=== PATIENT | female | born 1985 | race Caucasian/White ===

== ENCOUNTER → 2016-09-07 | Outpatient (CLI) | payer OTHER ==
[~2016-09-07] MED LIST: ACET50TA PO; DOCU10ELUD PO; IBUP100SUS PO; IBUP80TA PO; MOM30SS PO; PRENTAB74 PO; PRENTAB9 PO
[2016-09-07 11:17] LABS: ESTRADIOL 79.5 PG/ML
== END ==
LOC: M LAB 10:07
PROVIDERS: ATTEND Obstetrics & Gynecology Reproductive Endocrinology
DX: Z31.49 Encounter for other procreative investigation and testing (principal)

== ENCOUNTER → 2016-09-17 | Outpatient (CLI) | payer OTHER ==
[2016-09-17 09:48] LABS: ESTRADIOL 30.4 PG/ML; LUTEINIZING HORMONE 4.9 mIU/mL; PROGESTERONE 0.8 NG/ML
[2016-09-17 09:49] LABS: FOLLICLE STIMULATING HORMONE 6.5 mIU/mL
== END ==
LOC: M LAB 08:17
PROVIDERS: ATTEND Obstetrics & Gynecology Reproductive Endocrinology
DX: N97.9 Female infertility, unspecified (principal)

== ENCOUNTER → 2016-09-21 | Outpatient (CLI) | payer OTHER ==
--- NOTE | 2016-09-21 10:18 | REP ---
Transvaginal pelvic sonography: History: Infertility. Findings: Uterine dimensions are 7.1 x 2.8 x 4.4 cm. Endometrial stripe is 0.2 cm thick and centrally placed. No free fluid is seen. The overall dimensions of the right ovary today are 2.7 x 2.7 x 2.1 cm. There are three follicles over a centimeter in the right ovary measured as follows: 1.2 x 1.0, 1.2 x 1.2, and 1.1 x 0.7 cm. In addition, the right ovary contains 16 follicles ranging in size from 0.2 to 1.0 cm. The overall dimensions of the left ovary today are 2.9 x 2.0 x 1.8 cm. The left ovary contains a 1.4 x 0.6 and a 1.4 x 0.7 cm follicle. In addition, there are 14 follicles in the left ovary ranging in size from 0.2 to 0.8 cm.. Signed by Sean Wilkes MD 09/21/2016 10:20 A
[2016-09-21 10:25] LABS: ESTRADIOL 45.9 PG/ML; LUTEINIZING HORMONE 7.8 mIU/mL; PROGESTERONE 0.4 NG/ML
== END ==
LOC: M RAD 09:36
PROVIDERS: ATTEND Obstetrics & Gynecology Reproductive Endocrinology
DX: N97.8 Female infertility of other origin (principal)

== ENCOUNTER 2016-09-22 23:41 | Emergency (ER) | payer OTHER ==
[2016-09-23] MEDS ORDERED: ONDANSETRON 4MG/2ML VIAL (J2405) As Ordered ONE (00:35)
[2016-09-23] MEDS ORDERED: MORPHINE 2 MG/ML 1ML SYRINGE As Ordered ONE ×2 (00:35→02:08)
[2016-09-23 01:29] LABS: BASO % 0.1 % (0.0-1.0); EOS % 0.4 % (0.0-3.0); LARGE UNSTAINED CELL % 0.4 % (0.0-4.0); LYMPH # 0.3 K/mm3 (1.5-4.5); LYMPH % 2.8 % (24.0-44.0); MEAN CORPUSCULAR HEMOGLOBIN 30.6 pg (27.0-33.0); MEAN CORPUSCULAR HGB CONC 35.1 g/dl (32.0-36.5); MEAN CORPUSCULAR VOLUME 87.4 fl (80.0-96.0); MONO # 0.2 K/mm3 (0.0-0.8); MONO % 1.4 % (0.0-5.0); NEUTROPHILS # 10.8 K/mm3 (1.8-7.7); NEUTROPHILS % 94.9 % (36.0-66.0); PLATELET COUNT, AUTOMATED 170 k/mm3 (150-450); RED CELL DISTRIBUTION WIDTH 11.9 % (11.5-14.5); WHITE BLOOD COUNT 11.3 K/mm3 (4.0-10.0)
[2016-09-23 01:54] LABS: ALBUMIN/GLOBULIN RATIO 1.08 (1.00-1.93); ALKALINE PHOSPHATASE 77 U/L (45-117); ALT/SGPT 26 U/L (12-78); ANION GAP 12 MEQ/L (8-16); AST/SGOT 14 U/L (15-37); BILIRUBIN,DIRECT < 0.1 MG/DL (0.0-0.2); BILIRUBIN,TOTAL 0.5 MG/DL (0.2-1.0); BLOOD UREA NITROGEN 16 MG/DL (7-18); CALCIUM LEVEL 8.9 MG/DL (8.5-10.1); CARBON DIOXIDE LEVEL 24 MEQ/L (21-32); CHLORIDE LEVEL 103 MEQ/L (98-107); CREATININE FOR GFR 0.89 MG/DL (0.55-1.02); GLOMERULAR FILTRATION RATE > 60.0 (>60); GLUCOSE, FASTING 133 MG/DL (70-105); POTASSIUM SERUM 3.8 MEQ/L (3.5-5.1); SODIUM LEVEL 139 MEQ/L (136-145); TOTAL PROTEIN 7.7 GM/DL (6.4-8.2)
[2016-09-23 02:00] LABS: CONTROL LINE UCG INT CTR LINE PRESENT
--- NOTE | 2016-09-23 03:40 | REPUSA ---
CLINICAL HISTORY: Abdominal pain. TECHNIQUE: Multiple axial, sagittal and coronal CT images were obtained through the abdomen and pelvi s without administration of oral or IV contrast material. COMMENTS: The liver is of uniform attenuation without mass or defect. There is no intra or extrahepatic biliary ductal dilatation. The spleen is normal. The gallbladder is within normal limits. The pancreas is of normal contour and attenuation characteristics. There is no evidence of adrenal mass. The kidneys are normal in size, shape and configuration. No renal or ureteral calculi are identified. There is no hydroureter or hydronephrosis. Fluid-filled bowels. There is no evidence for appendicitis. There is no bowel wall thickening. No evidence for small or la rge bowel obstruction. There is no evidence of abdominal ascites or lymphadenopathy. There is no evidence of intrinsic or extrinsic bladder mass. There is no pelvic ascites or lymphadeno hank. Images of the lung bases show no evidence of pleural or parenchymal mass. There are no pleural effusi ons. Bilateral basilar atelectatic pulmonary changes. The bony structures are free of lytic or blastic lesions. IMPRESSION: Fluid-filled bowels. Ileus versus enteritis. Bilateral basilar atelectatic pulmonary changes. Mild diffuse thickening of the one of the bladder. Thank you for your kind referral of this patient.
[2016-09-23] MEDS ORDERED: ACETAMINOPH W/CODEINE #3 TAB UD As Ordered ONE (04:35)
--- NOTE | 2016-09-23 04:48 | EDDOCDS ---
Nurse's Notes [facility] Name: Lisset Soler Age: 30 yrs Sex: Female : 1985 Arrival Date: 09/22/2016 Time: 23:41 Bed 6 Private MD: Shine Ghosh Diagnosis: Vomiting;Diarrhea, unspecified Presentation: 09/22 23:58 Presenting complaint: Patient states: Vomiting, diarrhea with BL flank pain that began lf1 at 1800 tonight that has gotten worse and is currently 9/10. Pt denies pain with urination. Adult Sepsis Screening: The patient does not have new or worsening altered mentation. Patient's respiratory rate is less than 22. Systolic blood pressure is greater than 100. Patient has a qSOFA score of 0- Negative Sepsis Screen. Suicide/Homicide risk assessment- the patient denies having any suicidal and/or homicidal ideations and does not present with any other emotional, behavioral or mental health complaints. Status: The patient is a dependent. Transition of care: patient was not received from another setting of care. 23:58 Acuity: KAIT Level 3 lf1 23:58 Method Of Arrival: Walkin/Carried/Asstd lf1 Triage Assessment: 09/23 00:03 General: Appears uncomfortable, Behavior is cooperative. Pain: Location: BL flank Pain lf1 currently is 7 out of 10 on a pain scale. Quality of pain is described as aching, dull. HIV screening NA for this visit Offered previously. Neurological: Level of Consciousness is awake, alert, Oriented to person, place, time. Respiratory: Respiratory effort is even, unlabored. GI: Reports diarrhea, nausea, vomiting. : Denies burning with urination, urinary frequency. Derm: Skin is normal. Injury Description: No known injury. 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 Gonal-F 75 IU for Fertility daily 2. letrozole 2.5 mg oral tab 1 tab once daily 3. Vitamin Oral tab 1 tab once daily 4. Baby aspirin 81 mg - PMHx: Infertilty; PCOS; - PSHx: none; - Social history: Smoking status: Patient states was never smoker of tobacco. No barriers to communication noted, The patient speaks fluent Yoruba, Speaks appropriately for age, Preferred Language: Yoruba. - Family history: Not pertinent. - : The pt / caregiver states he / she is not on anticoagulants. Home medication list is obtained from the patient. - Exposure Risk Screening:: None identified. Screenin:57 Screening information is obtained from the patient. Fall risk: No risks identified. cf2 Assistance ADL's: requires no assistance with activities of daily living. Abuse/DV Screen: The patient / caregiver reports he/she is: not in a situation that causes fear, pain or injury. Nutritional screening: No deficits noted. Advance Directives: Further advance directive information is declined. home support is adequate. Assessment: :57 Adult Sepsis Screening: The patient does not have new or worsening altered mentation. cf2 Patient's respiratory rate is less than 22. Systolic blood pressure is greater than 100. Patient has a qSOFA score of 0- Negative Sepsis Screen. General: Appears ill, well groomed, Behavior is appropriate for age, cooperative, Denies fever, feeling ill, fatigue, chills. Pain: Location: back. Neurological: No deficits noted. EENT: No deficits noted. Cardiovascular: No deficits noted. Respiratory: No deficits noted. GI: Bowel sounds present X 4 quads. Abd is soft and non tender X 4 quads. Reports nausea, vomiting. : No deficits noted. Derm: No deficits noted. Musculoskeletal: No deficits noted. Injury Description: No known injury. 04:46 Reassessment: Patient states feeling better. cf2 Vital Signs: 09/22 23:43 BP 101 / 73; Pulse 99; Resp 18 S; Temp 99.0(O); Pulse Ox 98% on R/A; Weight 92.99 kg dd6 (R); Height 5 ft. 6 in. (167.64 cm) (R); 09/23 02:04 BP 116 / 72; cf2 04:46 BP 118 / 71; Pulse 82; Resp 16; Temp 98.0; Pulse Ox 99% on R/A; Pain 5/10; cf2 09/22 23:43 Body Mass Index 33.09 (92.99 kg, 167.64 cm) dd6 Vitals: 09/22 23:43 Log In Time: September 22, 2016 at 23:41. dd6 ED Course: 23:42 Patient visited by Jonel Saucedo PCA. dd6 23:42 Patient moved to Waiting dd6 23:43 Shine Ghosh is Private Physician. dd6 23:43 Patient moved to Pre RCE dd6 09/23 00:00 Triage Initiated lf1 00:04 Patient moved to I2 / M2 ajs 00:08 Patient moved to 6 ajs 00:11 Onelia Brush,ALEXANDRE is Primary Nurse. cf2 00:11 Patient visited by Onelia Brush RN. cf2 00:21 Patient visited by Onelia Brush RN. cf2 00:24 Xavier Manzanares MD is Attending Physician. br1 00:31 Patient visited by Onelia Brush RN. cf2 00:32 Patient visited by Xavier Manzanares MD. br1 01:00 Patient visited by Onelia Brush RN. cf2 01:31 Patient visited by Onelia Brush RN. cf2 01:33 Inserted saline lock: 20 gauge in left antecubital area and blood collected. The kas2 patient tolerated the procedure well. No procedures done that require assistance. 01:34 Patient visited by Janette Emanuel RN. kas2 01:54 Urine Test-In Lab Sent. jmv 01:54 Urine Culture Sent. jmv 01:54 Urinalysis Sent. jmv 01:55 Patient visited by Onelia Brush RN. cf2 01:56 Patient name changed from Lisset\\S\\\\S\\Lessner\\S\\ to Lisset\\S\\Savita\\S\\Lessner. EDMS 01:57 [facility] Payment Agreement was scanned into [employer] and attached to record. pm4 01:57 The patient / caregiver is instructed regarding the plan of care and ED course. Patient cf2 has correct armband on for positive identification. Placed in gown. Bed in low position. Call light in reach. Side rails up X 1. Side rails up X2. Door closed. Noise minimized. Visitors limited. Lights dimmed. Moved to private room. Verbal reassurance given. Warm blanket given. Pillow given. Head of bed elevated. Diet: Patient is NPO. 02:48 Patient visited by Onelia Brush RN. cf2 03:24 Patient visited by Onelia Brush RN. cf2 03:42 CT ABD & PELVIS: No Contrast Returned. EDMS 03:50 Patient visited by Xavier Manzanares MD. br1 03:53 AugieShine is Referral Physician. br1 Administered Medications: Discontinued: NS 0.9% 1000 ml IV at bolus once 01:00 Drug: NS 0.9% 1000 ml [sodium chloride 0.9 % intravenous solution] Route: IV; Rate: cf2 bolus; Site: left antecubital; 01:00 Drug: morphine 2 mg [morphine 4 mg/mL intravenous cartridge (0.5 mL)] Route: IVP; Site: cf2 left antecubital; 04:45 Follow up: Response: No significant change. cf2 01:00 Drug: Ondansetron 4 mg [ondansetron HCl 2 mg/mL intravenous solution (2 mL)] Route: cf2 IVP; Site: left antecubital; 04:45 Follow up: Response: No significant change. cf2 02:00 Drug: morphine 2 mg [morphine 2 mg/mL intravenous cartridge (1 mL)] Route: IVP; Site: cf2 left antecubital; 04:45 Follow up: Response: No significant change. cf2 04:44 Drug: Acetaminophen-Codeine 2 tabs [acetaminophen 300 mg-codeine 30 mg tablet (2 tabs)] cf2 Route: PO; 04:46 Follow up: Response: Pt left department before re-evaluation is appropriate cf2 Order Results: Lab Order: CBC with Diff; SPEC'M 09/23/16 01:19 Test: WHITE BLOOD COUNT; Value: 11.3; Range: 4.0-10.0; Abnormal: Above high normal; Units: K/mm3; Status: F Test: RED BLOOD COUNT; Value: 4.90; Range: 4.00-5.40; Units: M/mm3; Status: F Test: HEMOGLOBIN; Value: 15.0; Range: 12.0-16.0; Units: g/dl; Status: F Test: HEMATOCRIT; Value: 42.8; Range: 36.0-47.0; Units: %; Status: F Test: MEAN CORPUSCULAR VOLUME; Value: 87.4; Range: 80.0-96.0; Units: fl; Status: F Test: MEAN CORPUSCULAR HEMOGLOBIN; Value: 30.6; Range: 27.0-33.0; Units: pg; Status: F Test: MEAN CORPUSCULAR HGB CONC; Value: 35.1; Range: 32.0-36.5; Units: g/dl; Status: F Test: RED CELL DISTRIBUTION WIDTH; Value: 11.9; Range: 11.5-14.5; Units: %; Status: F Test: PLATELET COUNT, AUTOMATED; Value: 170; Range: 150-450; Units: k/mm3; Status: F Test: NEUTROPHILS %; Value: 94.9; Range: 36.0-66.0; Abnormal: Above high normal; Units: %; Status: F Test: LYMPH %; Value: 2.8; Range: 24.0-44.0; Abnormal: Below low normal; Units: %; Status: F Test: MONO %; Value: 1.4; Range: 0.0-5.0; Units: %; Status: F Test: EOS %; Value: 0.4; Range: 0.0-3.0; Units: %; Status: F Test: BASO %; Value: 0.1; Range: 0.0-1.0; Units: %; Status: F Test: LARGE UNSTAINED CELL %; Value: 0.4; Range: 0.0-4.0; Units: %; Status: F Test: NEUTROPHILS #; Value: 10.8; Range: 1.8-7.7; Abnormal: Above high normal; Units: K/mm3; Status: F Test: LYMPH #; Value: 0.3; Range: 1.5-4.5; Abnormal: Below low normal; Units: K/mm3; Status: F Test: MONO #; Value: 0.2; Range: 0.0-0.8; Units: K/mm3; Status: F Test: EOS #; Value: 0.0; Range: 0.0-0.50; Units: K/mm3; Status: F Test: BASO #; Value: 0.0; Range: 0.0-0.2; Units: K/mm3; Status: F Test: LARGE UNSTAINED CELL #; Value: 0.0; Range: 0.0-0.4; Units: K/mm3; Status: F Lab Order: BMP; SPEC'M 09/23/16 01:19 Test: GLUCOSE, FASTING; Value: 133; Range: 70-105; Abnormal: Above high normal; Units: MG/DL; Status: F Test: BLOOD UREA NITROGEN; Value: 16; Range: 7-18; Units: MG/DL; Status: F Test: CREATININE FOR GFR; Value: 0.89; Range: 0.55-1.02; Units: MG/DL; Status: F Test: GLOMERULAR FILTRATION RATE; Value: > 60.0; Range: >60; Status: F Test: SODIUM LEVEL; Value: 139; Range: 136-145; Units: MEQ/L; Status: F Test: POTASSIUM SERUM; Value: 3.8; Range: 3.5-5.1; Units: MEQ/L; Status: F Test: CHLORIDE LEVEL; Value: 103; Range: 98-107; Units: MEQ/L; Status: F Test: CARBON DIOXIDE LEVEL; Value: 24; Range: 21-32; Units: MEQ/L; Status: F Test: ANION GAP; Value: 12; Range: 8-16; Units: MEQ/L; Status: F Test: CALCIUM LEVEL; Value: 8.9; Range: 8.5-10.1; Units: MG/DL; Status: F Test Note: ; Units are mL/min/1.73 m2 Chronic Kidney Disease Staging per NKF: Stage I & II GFR >=60 Normal to Mildly Decreased Stage III GFR 30-59 Moderately Decreased Stage IV GFR 15-29 Severely Decreased Stage V GFR <15 Very Little GFR Left ESRD GFR <15 on BALANCE TRUER Lab Order: Urinalysis; SPEC'M 09/23/16 01:51 Test: APPEARANCE, URINE; Value: HAZY; Range: CLEAR; Status: F Test: COLOR, URINE; Value: YELLOW; Range: YELLOW; Status: F Test: PH,URINE; Value: 5.0; Range: 5.0-9.0; Units: UNITS; Status: F Test: SPECIFIC GRAVITY URINE AUTO; Value: 1.029; Range: 1.002-1.035; Status: F Test: PROTEIN, URINE AUTO; Value: NEGATIVE; Range: NEGATIVE; Units: mg/dL; Status: F Test: GLUCOSE, URINE (UA) AUTO; Value: NEGATIVE; Range: NEGATIVE; Units: mg/dL; Status: F Test: KETONE, URINE AUTO; Value: NEGATIVE; Range: NEGATIVE; Units: mg/dL; Status: F Test: UROBILINOGEN, URINE AUTO; Value: 0.2; Range: 0.0-2.0; Units: mg/dL; Status: F Test: BILIRUBIN, URINE AUTO; Value: NEGATIVE; Range: NEGATIVE; Status: F Test: NITRITE, URINE AUTO; Value: NEGATIVE; Range: NEGATIVE; Status: F Test: LEUKOCYTE ESTERASE, URINE AUTO; Value: NEGATIVE; Range: NEGATIVE; Status: F Test: BLOOD, URINE BLOOD; Value: NEGATIVE; Range: NEGATIVE; Status: F Test: SPERM, URINE AUTO; Range: NONE; Status: I Test: WBC, URINE AUTO; Value: 1; Range: 0-3; Units: /HPF; Status: F Test: RBC, URINE AUTO; Value: 2; Range: 0-3; Units: /HPF; Status: F Test: BACTERIA, URINE AUTO; Value: NEGATIVE; Range: NEGATIVE; Status: F Test: SQUAMOUS EPITHELIAL CELL UR AU; Value: 2; Range: 0-6; Units: /HPF; Status: F Test: MUCUS, URINE; Value: SMALL; Range: NEGATIVE; Status: F Test: HYALINE CAST, URINE AUTO; Value: 0; Range: 0-1; Units: /LPF; Status: F Lab Order: Urine Test-In Lab; SPEC'M 09/23/16 01:51 Test: URINE PREG TEST; Value: NEGATIVE; Range: NEGATIVE; Status: F Lab Order: Liver Profile; SPEC'M 09/23/16 01:19 Test: AST/SGOT; Value: 14; Range: 15-37; Abnormal: Below low normal; Units: U/L; Status: F Test: ALT/SGPT; Value: 26; Range: 12-78; Units: U/L; Status: F Test: ALKALINE PHOSPHATASE; Value: 77; Range: 45-117; Units: U/L; Status: F Test: BILIRUBIN,TOTAL; Value: 0.5; Range: 0.2-1.0; Units: MG/DL; Status: F Test: BILIRUBIN,DIRECT; Value: < 0.1; Range: 0.0-0.2; Units: MG/DL; Status: F Test: TOTAL PROTEIN; Value: 7.7; Range: 6.4-8.2; Units: GM/DL; Status: F Test: ALBUMIN; Value: 4.0; Range: 3.2-5.2; Units: GM/DL; Status: F Test: ALBUMIN/GLOBULIN RATIO; Value: 1.08; Range: 1.00-1.93; Status: F Lab Order: Lipase; SPEC'M 09/23/16 01:19 Test: LIPASE; Value: 127; Range: 73-393; Units: U/L; Status: F Radiology Order: CT ABD & PELVIS: No Contrast Test: CT ABD & PELVIS: No Contrast REASON FOR EXAMINATION: Renal colic; ; CLINICAL HISTORY: Abdominal pain.; TECHNIQUE: Multiple axial, sagittal and coronal CT images were obtained through the abdomen and pelvi; s without administration of oral or IV contrast material.; COMMENTS:; The liver is of uniform attenuation without mass or defect. There is no intra or extrahepatic biliary; ductal dilatation. The spleen is normal. The gallbladder is within normal limits. The pancreas is of; normal contour and attenuation characteristics. There is no evidence of adrenal mass.; The kidneys are normal in size, shape and configuration. No renal or ureteral calculi are identified.; There is no hydroureter or hydronephrosis. Fluid-filled bowels.; There is no evidence for appendicitis. There is no bowel wall thickening. No evidence for small or la; rge bowel obstruction. There is no evidence of abdominal ascites or lymphadenopathy.; There is no evidence of intrinsic or extrinsic bladder mass. There is no pelvic ascites or lymphadeno; hank.; Images of the lung bases show no evidence of pleural or parenchymal mass. There are no pleural effusi; ons. Bilateral basilar atelectatic pulmonary changes.; The bony structures are free of lytic or blastic lesions.; IMPRESSION:; Fluid-filled bowels. Ileus versus enteritis.; Bilateral basilar atelectatic pulmonary changes.; Mild diffuse thickening of the one of the bladder.; Thank you for your kind referral of this patient.; ; Outcome: 01:57 Property :Personal belongings accompany Pt. cf2 01:59 Discharge Assessment: patient administered narcotics - yes. cf2 03:53 Discharge ordered by Provider. br1 04:47 The following High Risk Discharge criteria are identified: None. Discharged to home. cf2 Condition: good Condition: stable Condition: improved. CT Study completed. 04:47 Patient left the ED. cf2 Signatures: Dispatcher [employer] EDMS Shila Cheney RN RN lf1 Xavier Manzanares MD MD br1 Jonel Saucedo, DRY MOLDER DRY MOLDER dd6 Lisset Mathew KimRN RN [facility] Onelia Brush RN RN cf2 Ruperto [place], DRY MOLDER DRY MOLDER josev Faustino Monique, Reg Reg pm4 MTDD
--- NOTE | 2016-09-23 04:48 | EDDOCDS ---
Physician Documentation [facility] Name: Lisset Soler Age: 30 yrs Sex: Female : 1985 Arrival Date: 09/22/2016 Time: 23:41 Bed 6 Private MD: Shine Ghosh Disposition: 09/23/16 03:53 Discharged to Home/Self Care. Impression: Vomiting, Diarrhea, unspecified. - Condition is Stable. - Discharge Instructions: Diarrhea, Nausea and Vomiting. - Prescriptions for ZOFRAN ODT 4 mg - dissolve 1 tablet by ORAL route 4 times per day As needed do not chew, do not swallow whole; 10 tablet. Tylenol- Codeine #3 300-30 mg Oral Tablet - take 2 tablet by ORAL route every 6 hours As needed MDD: 4 tabs; 6 tablet. - Medication Reconciliation, Local Pharmacy Hours form. - Follow up: Shine Ghosh; When: 2 - 3 days; Reason: Recheck today's complaints. - Problem is new. - Symptoms have improved. - Notes: You were seen in the ED for vomiting and diarhea. Bloodwork along with urine tests and CT scan of the abdomen showed no acute findings. It is possible you have a gastroenteritis. You may take Zofran as needed for nausea and encourage plenty of clear liquids for hydration. Advance your diet as tolerated, and call your primary doctor in the morning to arrange to be seen fora recheck. Return to the ED for any return of chest pain, trouble breathing, lightheadedness, loss of consciousness or any other concerns. Historical: - Allergies: PENICILLINS (Anaphylaxis); SULFA (SULFONAMIDES) (Anaphylaxis); Tamiflu"Made me worse"; - Home Meds: 1. Gonal-F 75 IU for Fertility daily 2. letrozole 2.5 mg oral tab 1 tab once daily 3. Vitamin Oral tab 1 tab once daily 4. Baby aspirin 81 mg - PMHx: Infertilty; PCOS; - PSHx: none; - Social history: Smoking status: Patient states was never smoker of tobacco. No barriers to communication noted, The patient speaks fluent Uzbek, Speaks appropriately for age, Preferred Language: Uzbek. - Family history: Not pertinent. - : The pt / caregiver states he / she is not on anticoagulants. Home medication list is obtained from the patient. - Exposure Risk Screening:: None identified. SURGICAL ASST: 09/23 00:03 1, Living 1, LMP 09/15/2016 lf1 Vital Signs: 09/22 23:43 BP 101 / 73; Pulse 99; Resp 18 S; Temp 99.0(O); Pulse Ox 98% on R/A; Weight 92.99 kg / dd6 205.01 lbs (R); Height 5 ft. 6 in. (167.64 cm) (R); 09/23 02:04 BP 116 / 72; cf2 04:46 BP 118 / 71; Pulse 82; Resp 16; Temp 98.0; Pulse Ox 99% on R/A; Pain 5/10; cf2 09/22 23:43 Body Mass Index 33.09 (92.99 kg, 167.64 cm) dd6 MDM: 00:30 IV Saline Lock ordered. br1 00:30 NS 0.9% 1000 ml IV at bolus once ordered. br1 00:31 morphine 2 mg IVP once ordered. br1 00:31 Ondansetron 4 mg IVP once ordered. br1 00:31 CBC with Diff Ordered. EDMS 00:31 BMP Ordered. EDMS 00:31 Urinalysis Ordered. EDMS 00:31 Urine Culture Ordered. EDMS 00:31 Urine Test-In Lab Ordered. EDMS 00:31 Liver Profile Ordered. EDMS 00:31 Lipase Ordered. EDMS 01:46 Financial registration complete. pm4 01:54 Recheck B/P ordered. br1 01:54 morphine 2 mg IVP once; hold for SBP < 100 mm Hg ordered. br1 01:55 CBC with Diff Reviewed. br1 01:55 BMP Reviewed. br1 01:55 Liver Profile Reviewed. br1 01:55 Lipase Reviewed. br1 01:57 [facility] [place] Agreement was scanned into [employer] and attached to record. pm4 02:21 Urinalysis Reviewed. br1 02:21 Urine Test-In Lab Reviewed. br1 02:22 CT ABD & PELVIS: No Contrast Ordered. EDMS 04:33 Acetaminophen-Codeine 300 mg-30 mg 2 tabs PO once ordered. br1 Administered Medications: Discontinued: NS 0.9% 1000 ml IV at bolus once 01:00 Drug: NS 0.9% 1000 ml [sodium chloride 0.9 % intravenous solution] Route: IV; Rate: cf2 bolus; Site: left antecubital; 01:00 Drug: morphine 2 mg [morphine 4 mg/mL intravenous cartridge (0.5 mL)] Route: IVP; Site: cf2 left antecubital; 04:45 Follow up: Response: No significant change. cf2 01:00 Drug: Ondansetron 4 mg [ondansetron HCl 2 mg/mL intravenous solution (2 mL)] Route: cf2 IVP; Site: left antecubital; 04:45 Follow up: Response: No significant change. cf2 02:00 Drug: morphine 2 mg [morphine 2 mg/mL intravenous cartridge (1 mL)] Route: IVP; Site: cf2 left antecubital; 04:45 Follow up: Response: No significant change. cf2 04:44 Drug: Acetaminophen-Codeine 2 tabs [acetaminophen 300 mg-codeine 30 mg tablet (2 tabs)] cf2 Route: PO; 04:46 Follow up: Response: Pt left department before re-evaluation is appropriate cf2 Signatures: Dispatcher [employer] Shila RiosRN RN lf1 Xavier Manzanares MD MD br1 Onelia Brush RN RN cf2 Faustino Monique, Reg Reg pm4 The chart was reviewed and I authenticate all verbal orders and agree with the evaluation and treatment provided.Attachments: 01:57 [facility] Payment Agreement pm4 MTDD
--- NOTE | 2016-09-25 05:49 | EDDOCDS ---
Physician Documentation [facility] Name: Lisset Soler Age: 30 yrs Sex: Female : 1985 Arrival Date: 09/22/2016 Time: 23:41 Bed 6 Private MD: Shine Ghosh Disposition: 09/23/16 03:53 Discharged to Home/Self Care. Impression: Vomiting, Diarrhea, unspecified. - Condition is Stable. - Discharge Instructions: Diarrhea, Nausea and Vomiting. - Prescriptions for ZOFRAN ODT 4 mg - dissolve 1 tablet by ORAL route 4 times per day As needed do not chew, do not swallow whole; 10 tablet. Tylenol- Codeine #3 300-30 mg Oral Tablet - take 2 tablet by ORAL route every 6 hours As needed MDD: 4 tabs; 6 tablet. - Medication Reconciliation, Local Pharmacy Hours form. - Follow up: Shine Ghosh; When: 2 - 3 days; Reason: Recheck today's complaints. - Problem is new. - Symptoms have improved. - Notes: You were seen in the ED for vomiting and diarhea. Bloodwork along with urine tests and CT scan of the abdomen showed no acute findings. It is possible you have a gastroenteritis. You may take Zofran as needed for nausea and encourage plenty of clear liquids for hydration. Advance your diet as tolerated, and call your primary doctor in the morning to arrange to be seen fora recheck. Return to the ED for any return of chest pain, trouble breathing, lightheadedness, loss of consciousness or any other concerns. Historical: - Allergies: PENICILLINS (Anaphylaxis); SULFA (SULFONAMIDES) (Anaphylaxis); Tamiflu"Made me worse"; - Home Meds: 1. Gonal-F 75 IU for Fertility daily 2. letrozole 2.5 mg oral tab 1 tab once daily 3. Vitamin Oral tab 1 tab once daily 4. Baby aspirin 81 mg - PMHx: Infertilty; PCOS; - PSHx: none; - Social history: Smoking status: Patient states was never smoker of tobacco. No barriers to communication noted, The patient speaks fluent Swedish, Speaks appropriately for age, Preferred Language: Swedish. - Family history: Not pertinent. - : The pt / caregiver states he / she is not on anticoagulants. Home medication list is obtained from the patient. - Exposure Risk Screening:: None identified. 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 6 in. (167.64 cm) (R); 09/23 02:04 BP 116 / 72; cf2 04:46 BP 118 / 71; Pulse 82; Resp 16; Temp 98.0; Pulse Ox 99% on R/A; Pain 5/10; cf2 09/22 23:43 Body Mass Index 33.09 (92.99 kg, 167.64 cm) dd6 MDM: 00:30 IV Saline Lock ordered. br1 00:30 NS 0.9% 1000 ml IV at bolus once ordered. br1 00:31 morphine 2 mg IVP once ordered. br1 00:31 Ondansetron 4 mg IVP once ordered. br1 00:31 CBC with Diff Ordered. EDMS 00:31 BMP Ordered. EDMS 00:31 Urinalysis Ordered. EDMS 00:31 Urine Culture Ordered. EDMS 00:31 Urine Test-In Lab Ordered. EDMS 00:31 Liver Profile Ordered. EDMS 00:31 Lipase Ordered. EDMS 01:46 Financial registration complete. pm4 01:54 Recheck B/P ordered. br1 01:54 morphine 2 mg IVP once; hold for SBP < 100 mm Hg ordered. br1 01:55 CBC with Diff Reviewed. br1 01:55 BMP Reviewed. br1 01:55 Liver Profile Reviewed. br1 01:55 Lipase Reviewed. br1 01:57 [place] [place] Agreement was scanned into [employer] and attached to record. pm4 02:21 Urinalysis Reviewed. br1 02:21 Urine Test-In Lab Reviewed. br1 02:22 CT ABD & PELVIS: No Contrast Ordered. EDMS 04:33 Acetaminophen-Codeine 300 mg-30 mg 2 tabs PO once ordered. br1 10:35 T-Sheet-- Draft Copy was scanned into [employer] and attached to record. gb 10:35 Radiology Report was scanned into [employer] and attached to record. gb Administered Medications: Discontinued: NS 0.9% 1000 ml IV at bolus once 01:00 Drug: NS 0.9% 1000 ml [sodium chloride 0.9 % intravenous solution] Route: IV; Rate: cf2 bolus; Site: left antecubital; 01:00 Drug: morphine 2 mg [morphine 4 mg/mL intravenous cartridge (0.5 mL)] Route: IVP; Site: cf2 left antecubital; 04:45 Follow up: Response: No significant change. cf2 01:00 Drug: Ondansetron 4 mg [ondansetron HCl 2 mg/mL intravenous solution (2 mL)] Route: cf2 IVP; Site: left antecubital; 04:45 Follow up: Response: No significant change. cf2 02:00 Drug: morphine 2 mg [morphine 2 mg/mL intravenous cartridge (1 mL)] Route: IVP; Site: cf2 left antecubital; 04:45 Follow up: Response: No significant change. cf2 04:44 Drug: Acetaminophen-Codeine 2 tabs [acetaminophen 300 mg-codeine 30 mg tablet (2 tabs)] cf2 Route: PO; 04:46 Follow up: Response: Pt left department before re-evaluation is appropriate cf2 Signatures: Dispatcher [employer] EDBertha Headley, Reg Reg gb Shila Cheney,RN RN lf1 Xavier Manzanares MD MD br1 Onelia Brush RN RN cf2 Faustino Moniuqe, Reg Reg pm4 The chart was reviewed and I authenticate all verbal orders and agree with the evaluation and treatment provided.Attachments: 01:57 [facility] [place] Agreement pm4 10:35 T-Sheet-- Draft Copy gb Chart Complete MTDD
--- NOTE | 2016-09-25 05:49 | EDDOCDS ---
Physician Documentation [facility] Name: Lisset Soler Age: 30 yrs Sex: Female : 1985 Arrival Date: 09/22/2016 Time: 23:41 Bed 6 Private MD: Shine Ghosh Disposition: 09/23/16 03:53 Discharged to Home/Self Care. Impression: Vomiting, Diarrhea, unspecified. - Condition is Stable. - Discharge Instructions: Diarrhea, Nausea and Vomiting. - Prescriptions for ZOFRAN ODT 4 mg - dissolve 1 tablet by ORAL route 4 times per day As needed do not chew, do not swallow whole; 10 tablet. Tylenol- Codeine #3 300-30 mg Oral Tablet - take 2 tablet by ORAL route every 6 hours As needed MDD: 4 tabs; 6 tablet. - Medication Reconciliation, Local Pharmacy Hours form. - Follow up: Shine Ghosh; When: 2 - 3 days; Reason: Recheck today's complaints. - Problem is new. - Symptoms have improved. - Notes: You were seen in the ED for vomiting and diarhea. Bloodwork along with urine tests and CT scan of the abdomen showed no acute findings. It is possible you have a gastroenteritis. You may take Zofran as needed for nausea and encourage plenty of clear liquids for hydration. Advance your diet as tolerated, and call your primary doctor in the morning to arrange to be seen fora recheck. Return to the ED for any return of chest pain, trouble breathing, lightheadedness, loss of consciousness or any other concerns. Historical: - Allergies: PENICILLINS (Anaphylaxis); SULFA (SULFONAMIDES) (Anaphylaxis); Tamiflu"Made me worse"; - Home Meds: 1. Gonal-F 75 IU for Fertility daily 2. letrozole 2.5 mg oral tab 1 tab once daily 3. Vitamin Oral tab 1 tab once daily 4. Baby aspirin 81 mg - PMHx: Infertilty; PCOS; - PSHx: none; - Social history: Smoking status: Patient states was never smoker of tobacco. No barriers to communication noted, The patient speaks fluent Italian, Speaks appropriately for age, Preferred Language: Italian. - Family history: Not pertinent. - : The pt / caregiver states he / she is not on anticoagulants. Home medication list is obtained from the patient. - Exposure Risk Screening:: None identified. 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 6 in. (167.64 cm) (R); 09/23 02:04 BP 116 / 72; cf2 04:46 BP 118 / 71; Pulse 82; Resp 16; Temp 98.0; Pulse Ox 99% on R/A; Pain 5/10; cf2 09/22 23:43 Body Mass Index 33.09 (92.99 kg, 167.64 cm) dd6 MDM: 00:30 IV Saline Lock ordered. br1 00:30 NS 0.9% 1000 ml IV at bolus once ordered. br1 00:31 morphine 2 mg IVP once ordered. br1 00:31 Ondansetron 4 mg IVP once ordered. br1 00:31 CBC with Diff Ordered. EDMS 00:31 BMP Ordered. EDMS 00:31 Urinalysis Ordered. EDMS 00:31 Urine Culture Ordered. EDMS 00:31 Urine Test-In Lab Ordered. EDMS 00:31 Liver Profile Ordered. EDMS 00:31 Lipase Ordered. EDMS 01:46 Financial registration complete. pm4 01:54 Recheck B/P ordered. br1 01:54 morphine 2 mg IVP once; hold for SBP < 100 mm Hg ordered. br1 01:55 CBC with Diff Reviewed. br1 01:55 BMP Reviewed. br1 01:55 Liver Profile Reviewed. br1 01:55 Lipase Reviewed. br1 01:57 [facility] [place] Payment Agreement was scanned into [employer] and attached to record. pm4 02:21 Urinalysis Reviewed. br1 02:21 Urine Test-In Lab Reviewed. br1 02:22 CT ABD & PELVIS: No Contrast Ordered. EDMS 04:33 Acetaminophen-Codeine 300 mg-30 mg 2 tabs PO once ordered. br1 10:35 T-Sheet-- Draft Copy was scanned into [employer] and attached to record. gb 10:35 Radiology Report was scanned into [employer] and attached to record. gb Administered Medications: Discontinued: NS 0.9% 1000 ml IV at bolus once 01:00 Drug: NS 0.9% 1000 ml [sodium chloride 0.9 % intravenous solution] Route: IV; Rate: cf2 bolus; Site: left antecubital; 01:00 Drug: morphine 2 mg [morphine 4 mg/mL intravenous cartridge (0.5 mL)] Route: IVP; Site: cf2 left antecubital; 04:45 Follow up: Response: No significant change. cf2 01:00 Drug: Ondansetron 4 mg [ondansetron HCl 2 mg/mL intravenous solution (2 mL)] Route: cf2 IVP; Site: left antecubital; 04:45 Follow up: Response: No significant change. cf2 02:00 Drug: morphine 2 mg [morphine 2 mg/mL intravenous cartridge (1 mL)] Route: IVP; Site: cf2 left antecubital; 04:45 Follow up: Response: No significant change. cf2 04:44 Drug: Acetaminophen-Codeine 2 tabs [acetaminophen 300 mg-codeine 30 mg tablet (2 tabs)] cf2 Route: PO; 04:46 Follow up: Response: Pt left department before re-evaluation is appropriate cf2 Signatures: Dispatcher [employer] EDBertha Headley, Reg Reg gb Shila Cheney,RN RN lf1 Xavier Manzanares MD MD br1 Onelia Brush RN RN cf2 Faustino Monique, Reg Reg pm4 The chart was reviewed and I authenticate all verbal orders and agree with the evaluation and treatment provided.Attachments: 01:57 [facility] [place] Payment Agreement pm4 10:35 T-Sheet-- Draft Copy gb Chart Complete MTDD
--- NOTE | 2016-09-25 05:49 | EDDOCDS ---
Nurse's Notes [facility] Name: Lisset Soler Age: 30 yrs Sex: Female : 1985 Arrival Date: 09/22/2016 Time: 23:41 Bed 6 Private MD: Shine Ghosh Diagnosis: Vomiting;Diarrhea, unspecified Presentation: 09/22 23:58 Presenting complaint: Patient states: Vomiting, diarrhea with BL flank pain that began lf1 at 1800 tonight that has gotten worse and is currently 9/10. Pt denies pain with urination. Adult Sepsis Screening: The patient does not have new or worsening altered mentation. Patient's respiratory rate is less than 22. Systolic blood pressure is greater than 100. Patient has a qSOFA score of 0- Negative Sepsis Screen. Suicide/Homicide risk assessment- the patient denies having any suicidal and/or homicidal ideations and does not present with any other emotional, behavioral or mental health complaints. Status: The patient is a dependent. Transition of care: patient was not received from another setting of care. 23:58 Acuity: KAIT Level 3 lf1 23:58 Method Of Arrival: Walkin/Carried/Asstd lf1 Triage Assessment: 09/23 00:03 General: Appears uncomfortable, Behavior is cooperative. Pain: Location: BL flank Pain lf1 currently is 7 out of 10 on a pain scale. Quality of pain is described as aching, dull. HIV screening NA for this visit Offered previously. Neurological: Level of Consciousness is awake, alert, Oriented to person, place, time. Respiratory: Respiratory effort is even, unlabored. GI: Reports diarrhea, nausea, vomiting. : Denies burning with urination, urinary frequency. Derm: Skin is normal. Injury Description: No known injury. 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 Gonal-F 75 IU for Fertility daily 2. letrozole 2.5 mg oral tab 1 tab once daily 3. Vitamin Oral tab 1 tab once daily 4. Baby aspirin 81 mg - PMHx: Infertilty; PCOS; - PSHx: none; - Social history: Smoking status: Patient states was never smoker of tobacco. No barriers to communication noted, The patient speaks fluent Chinese, Speaks appropriately for age, Preferred Language: Chinese. - Family history: Not pertinent. - : The pt / caregiver states he / she is not on anticoagulants. Home medication list is obtained from the patient. - Exposure Risk Screening:: None identified. Screenin:57 Screening information is obtained from the patient. Fall risk: No risks identified. cf2 Assistance ADL's: requires no assistance with activities of daily living. Abuse/DV Screen: The patient / caregiver reports he/she is: not in a situation that causes fear, pain or injury. Nutritional screening: No deficits noted. Advance Directives: Further advance directive information is declined. home support is adequate. Assessment: :57 Adult Sepsis Screening: The patient does not have new or worsening altered mentation. cf2 Patient's respiratory rate is less than 22. Systolic blood pressure is greater than 100. Patient has a qSOFA score of 0- Negative Sepsis Screen. General: Appears ill, well groomed, Behavior is appropriate for age, cooperative, Denies fever, feeling ill, fatigue, chills. Pain: Location: back. Neurological: No deficits noted. EENT: No deficits noted. Cardiovascular: No deficits noted. Respiratory: No deficits noted. GI: Bowel sounds present X 4 quads. Abd is soft and non tender X 4 quads. Reports nausea, vomiting. : No deficits noted. Derm: No deficits noted. Musculoskeletal: No deficits noted. Injury Description: No known injury. 04:46 Reassessment: Patient states feeling better. cf2 Vital Signs: 09/22 23:43 BP 101 / 73; Pulse 99; Resp 18 S; Temp 99.0(O); Pulse Ox 98% on R/A; Weight 92.99 kg dd6 (R); Height 5 ft. 6 in. (167.64 cm) (R); 09/23 02:04 BP 116 / 72; cf2 04:46 BP 118 / 71; Pulse 82; Resp 16; Temp 98.0; Pulse Ox 99% on R/A; Pain 5/10; cf2 09/22 23:43 Body Mass Index 33.09 (92.99 kg, 167.64 cm) dd6 Vitals: 09/22 23:43 Log In Time: September 22, 2016 at 23:41. dd6 ED Course: 23:42 Patient visited by Jonel Saucedo PCA. dd6 23:42 Patient moved to Waiting dd6 23:43 Shine Ghosh is Private Physician. dd6 23:43 Patient moved to Pre RCE dd6 09/23 00:00 Triage Initiated lf1 00:04 Patient moved to I2 / M2 ajs 00:08 Patient moved to 6 ajs 00:11 Onelia Brush,ALEXANDRE is Primary Nurse. cf2 00:11 Patient visited by Onelia Brush RN. cf2 00:21 Patient visited by Onelia Brush RN. cf2 00:24 Xavier Manzanares MD is Attending Physician. br1 00:31 Patient visited by Onelia Brush RN. cf2 00:32 Patient visited by Xavier Manzanares MD. br1 01:00 Patient visited by Onelia Brush RN. cf2 01:31 Patient visited by Onelia Brush RN. cf2 01:33 Inserted saline lock: 20 gauge in left antecubital area and blood collected. The kas2 patient tolerated the procedure well. No procedures done that require assistance. 01:34 Patient visited by Janette Emanuel RN. kas2 01:54 Urine Test-In Lab Sent. jmv 01:54 Urine Culture Sent. jmv 01:54 Urinalysis Sent. jmv 01:55 Patient visited by Onelia Brush RN. cf2 01:56 Patient name changed from Lisset\\S\\\\S\\Lessner\\S\\ to Lisset\\S\\Savita\\S\\Lessner. EDMS 01:57 [facility] Payment Agreement was scanned into [employer] and attached to record. pm4 01:57 The patient / caregiver is instructed regarding the plan of care and ED course. Patient cf2 has correct armband on for positive identification. Placed in gown. Bed in low position. Call light in reach. Side rails up X 1. Side rails up X2. Door closed. Noise minimized. Visitors limited. Lights dimmed. Moved to private room. Verbal reassurance given. Warm blanket given. Pillow given. Head of bed elevated. Diet: Patient is NPO. 02:48 Patient visited by Onelia Brush,ALEXANDRE. cf2 03:24 Patient visited by Onelia Brush,ALEXANDRE. cf2 03:42 CT ABD & PELVIS: No Contrast Returned. EDMS 03:50 Patient visited by Xavier Manzanares MD. br1 03:53 AugieShine is Referral Physician. br1 10:35 T-Sheet-- Draft Copy was scanned into [employer] and attached to record. gb 10:35 Radiology Report was scanned into [employer] and attached to record. gb Administered Medications: Discontinued: NS 0.9% 1000 ml IV at bolus once 01:00 Drug: NS 0.9% 1000 ml [sodium chloride 0.9 % intravenous solution] Route: IV; Rate: cf2 bolus; Site: left antecubital; 01:00 Drug: morphine 2 mg [morphine 4 mg/mL intravenous cartridge (0.5 mL)] Route: IVP; Site: cf2 left antecubital; 04:45 Follow up: Response: No significant change. cf2 01:00 Drug: Ondansetron 4 mg [ondansetron HCl 2 mg/mL intravenous solution (2 mL)] Route: cf2 IVP; Site: left antecubital; 04:45 Follow up: Response: No significant change. cf2 02:00 Drug: morphine 2 mg [morphine 2 mg/mL intravenous cartridge (1 mL)] Route: IVP; Site: cf2 left antecubital; 04:45 Follow up: Response: No significant change. cf2 04:44 Drug: Acetaminophen-Codeine 2 tabs [acetaminophen 300 mg-codeine 30 mg tablet (2 tabs)] cf2 Route: PO; 04:46 Follow up: Response: Pt left department before re-evaluation is appropriate cf2 Order Results: Lab Order: CBC with Diff; SPEC'M 09/23/16 01:19 Test: WHITE BLOOD COUNT; Value: 11.3; Range: 4.0-10.0; Abnormal: Above high normal; Units: K/mm3; Status: F Test: RED BLOOD COUNT; Value: 4.90; Range: 4.00-5.40; Units: M/mm3; Status: F Test: HEMOGLOBIN; Value: 15.0; Range: 12.0-16.0; Units: g/dl; Status: F Test: HEMATOCRIT; Value: 42.8; Range: 36.0-47.0; Units: %; Status: F Test: MEAN CORPUSCULAR VOLUME; Value: 87.4; Range: 80.0-96.0; Units: fl; Status: F Test: MEAN CORPUSCULAR HEMOGLOBIN; Value: 30.6; Range: 27.0-33.0; Units: pg; Status: F Test: MEAN CORPUSCULAR HGB CONC; Value: 35.1; Range: 32.0-36.5; Units: g/dl; Status: F Test: RED CELL DISTRIBUTION WIDTH; Value: 11.9; Range: 11.5-14.5; Units: %; Status: F Test: PLATELET COUNT, AUTOMATED; Value: 170; Range: 150-450; Units: k/mm3; Status: F Test: NEUTROPHILS %; Value: 94.9; Range: 36.0-66.0; Abnormal: Above high normal; Units: %; Status: F Test: LYMPH %; Value: 2.8; Range: 24.0-44.0; Abnormal: Below low normal; Units: %; Status: F Test: MONO %; Value: 1.4; Range: 0.0-5.0; Units: %; Status: F Test: EOS %; Value: 0.4; Range: 0.0-3.0; Units: %; Status: F Test: BASO %; Value: 0.1; Range: 0.0-1.0; Units: %; Status: F Test: LARGE UNSTAINED CELL %; Value: 0.4; Range: 0.0-4.0; Units: %; Status: F Test: NEUTROPHILS #; Value: 10.8; Range: 1.8-7.7; Abnormal: Above high normal; Units: K/mm3; Status: F Test: LYMPH #; Value: 0.3; Range: 1.5-4.5; Abnormal: Below low normal; Units: K/mm3; Status: F Test: MONO #; Value: 0.2; Range: 0.0-0.8; Units: K/mm3; Status: F Test: EOS #; Value: 0.0; Range: 0.0-0.50; Units: K/mm3; Status: F Test: BASO #; Value: 0.0; Range: 0.0-0.2; Units: K/mm3; Status: F Test: LARGE UNSTAINED CELL #; Value: 0.0; Range: 0.0-0.4; Units: K/mm3; Status: F Lab Order: BMP; SPEC'M 09/23/16 01:19 Test: GLUCOSE, FASTING; Value: 133; Range: 70-105; Abnormal: Above high normal; Units: MG/DL; Status: F Test: BLOOD UREA NITROGEN; Value: 16; Range: 7-18; Units: MG/DL; Status: F Test: CREATININE FOR GFR; Value: 0.89; Range: 0.55-1.02; Units: MG/DL; Status: F Test: GLOMERULAR FILTRATION RATE; Value: > 60.0; Range: >60; Status: F Test: SODIUM LEVEL; Value: 139; Range: 136-145; Units: MEQ/L; Status: F Test: POTASSIUM SERUM; Value: 3.8; Range: 3.5-5.1; Units: MEQ/L; Status: F Test: CHLORIDE LEVEL; Value: 103; Range: 98-107; Units: MEQ/L; Status: F Test: CARBON DIOXIDE LEVEL; Value: 24; Range: 21-32; Units: MEQ/L; Status: F Test: ANION GAP; Value: 12; Range: 8-16; Units: MEQ/L; Status: F Test: CALCIUM LEVEL; Value: 8.9; Range: 8.5-10.1; Units: MG/DL; Status: F Test Note: ; Units are mL/min/1.73 m2 Chronic Kidney Disease Staging per NKF: Stage I & II GFR >=60 Normal to Mildly Decreased Stage III GFR 30-59 Moderately Decreased Stage IV GFR 15-29 Severely Decreased Stage V GFR <15 Very Little GFR Left ESRD GFR <15 on FACILITIES ADMINISTRATOR Lab Order: Urinalysis; SPEC'M 09/23/16 01:51 Test: APPEARANCE, URINE; Value: HAZY; Range: CLEAR; Status: F Test: COLOR, URINE; Value: YELLOW; Range: YELLOW; Status: F Test: PH,URINE; Value: 5.0; Range: 5.0-9.0; Units: UNITS; Status: F Test: SPECIFIC GRAVITY URINE AUTO; Value: 1.029; Range: 1.002-1.035; Status: F Test: PROTEIN, URINE AUTO; Value: NEGATIVE; Range: NEGATIVE; Units: mg/dL; Status: F Test: GLUCOSE, URINE (UA) AUTO; Value: NEGATIVE; Range: NEGATIVE; Units: mg/dL; Status: F Test: KETONE, URINE AUTO; Value: NEGATIVE; Range: NEGATIVE; Units: mg/dL; Status: F Test: UROBILINOGEN, URINE AUTO; Value: 0.2; Range: 0.0-2.0; Units: mg/dL; Status: F Test: BILIRUBIN, URINE AUTO; Value: NEGATIVE; Range: NEGATIVE; Status: F Test: NITRITE, URINE AUTO; Value: NEGATIVE; Range: NEGATIVE; Status: F Test: LEUKOCYTE ESTERASE, URINE AUTO; Value: NEGATIVE; Range: NEGATIVE; Status: F Test: BLOOD, URINE BLOOD; Value: NEGATIVE; Range: NEGATIVE; Status: F Test: SPERM, URINE AUTO; Range: NONE; Status: I Test: WBC, URINE AUTO; Value: 1; Range: 0-3; Units: /HPF; Status: F Test: RBC, URINE AUTO; Value: 2; Range: 0-3; Units: /HPF; Status: F Test: BACTERIA, URINE AUTO; Value: NEGATIVE; Range: NEGATIVE; Status: F Test: SQUAMOUS EPITHELIAL CELL UR AU; Value: 2; Range: 0-6; Units: /HPF; Status: F Test: MUCUS, URINE; Value: SMALL; Range: NEGATIVE; Status: F Test: HYALINE CAST, URINE AUTO; Value: 0; Range: 0-1; Units: /LPF; Status: F Lab Order: Urine Culture; SPEC'M 09/23/16 01:51 Test: URINE CULTURE; Value: <EXTERNAL COMMENT eCWMed> FULL REPORT IN LAB NOTES (eCW and Medent).; Status: F Test: URINE CULTURE; Value: URINE CULTURE RESULT SPECIMEN APPEARS CONTAMINATED; Status: F Lab Order: Urine Test-In Lab; SPEC'M 09/23/16 01:51 Test: URINE PREG TEST; Value: NEGATIVE; Range: NEGATIVE; Status: F Lab Order: Liver Profile; SPEC'M 09/23/16 01:19 Test: AST/SGOT; Value: 14; Range: 15-37; Abnormal: Below low normal; Units: U/L; Status: F Test: ALT/SGPT; Value: 26; Range: 12-78; Units: U/L; Status: F Test: ALKALINE PHOSPHATASE; Value: 77; Range: 45-117; Units: U/L; Status: F Test: BILIRUBIN,TOTAL; Value: 0.5; Range: 0.2-1.0; Units: MG/DL; Status: F Test: BILIRUBIN,DIRECT; Value: < 0.1; Range: 0.0-0.2; Units: MG/DL; Status: F Test: TOTAL PROTEIN; Value: 7.7; Range: 6.4-8.2; Units: GM/DL; Status: F Test: ALBUMIN; Value: 4.0; Range: 3.2-5.2; Units: GM/DL; Status: F Test: ALBUMIN/GLOBULIN RATIO; Value: 1.08; Range: 1.00-1.93; Status: F Lab Order: Lipase; SPEC'M 09/23/16 01:19 Test: LIPASE; Value: 127; Range: 73-393; Units: U/L; Status: F Radiology Order: CT ABD & PELVIS: No Contrast Test: CT ABD & PELVIS: No Contrast REASON FOR EXAMINATION: Renal colic; ; CLINICAL HISTORY: Abdominal pain.; TECHNIQUE: Multiple axial, sagittal and coronal CT images were obtained through the abdomen and pelvi; s without administration of oral or IV contrast material.; COMMENTS:; The liver is of uniform attenuation without mass or defect. There is no intra or extrahepatic biliary; ductal dilatation. The spleen is normal. The gallbladder is within normal limits. The pancreas is of; normal contour and attenuation characteristics. There is no evidence of adrenal mass.; The kidneys are normal in size, shape and configuration. No renal or ureteral calculi are identified.; There is no hydroureter or hydronephrosis. Fluid-filled bowels.; There is no evidence for appendicitis. There is no bowel wall thickening. No evidence for small or la; rge bowel obstruction. There is no evidence of abdominal ascites or lymphadenopathy.; There is no evidence of intrinsic or extrinsic bladder mass. There is no pelvic ascites or lymphadeno; hank.; Images of the lung bases show no evidence of pleural or parenchymal mass. There are no pleural effusi; ons. Bilateral basilar atelectatic pulmonary changes.; The bony structures are free of lytic or blastic lesions.; IMPRESSION:; Fluid-filled bowels. Ileus versus enteritis.; Bilateral basilar atelectatic pulmonary changes.; Mild diffuse thickening of the one of the bladder.; Thank you for your kind referral of this patient.; ; Outcome: 01:57 Property :Personal belongings accompany Pt. cf2 01:59 Discharge Assessment: patient administered narcotics - yes. cf2 03:53 Discharge ordered by Provider. br1 04:47 The following High Risk Discharge criteria are identified: None. Discharged to home. cf2 Condition: good Condition: stable Condition: improved. CT Study completed. 04:47 Patient left the ED. cf2 Signatures: Dispatcher [employer] EDMS Bertha Martínez, Reg Reg gb Shila Cheney,RN RN lf1 Xavier Manzanares MD MD br1 Jonel Saucedo, OPERATING ROOM ORDERLY OPERATING ROOM ORDERLY dd6 Lisset Mathew Kim,RN RN [facility] Onelia Brush,RN RN cf2 Ruperto Richmond, OPERATING ROOM ORDERLY OPERATING ROOM ORDERLY jmv Faustino Monique, Reg Reg pm4 Chart Complete MTDD
== END 2016-09-23 04:47 | disposition home or self-care (01) ==
LOC: M ED 23:41
DX: R11.10 Vomiting, unspecified (principal); R19.7 Diarrhea, unspecified; E28.2 Polycystic ovarian syndrome; N97.9 Female infertility, unspecified; Z79.82 Long term (current) use of aspirin; Z79.899 Other long term (current) drug therapy; Z88.8 Allergy status to other drugs, medicaments and biological substances; Z88.0 Allergy status to penicillin; Z88.2 Allergy status to sulfonamides
CPT/HCPCS: 36415; 74176; 80048; 80076; 81001; 83690; 84703; 85025; 87086; 96374; 96375; 96376; 99284; J2405

== ENCOUNTER → 2016-09-25 | Outpatient (CLI) | payer OTHER ==
[2016-09-25 10:53] LABS: PROGESTERONE 0.3 NG/ML
[2016-09-25 10:54] LABS: ESTRADIOL 181.5 PG/ML; LUTEINIZING HORMONE 1.5 mIU/mL
--- NOTE | 2016-09-25 10:56 | REP ---
TRANSVAGINAL PELVIC SONOGRAPHY: HISTORY: Infertility. Follicle study. FINDINGS: Uterine dimensions are 8.1 x 3.2 x 4.7 cm. Endometrial stripe 0.6 cm thick and centrally placed. No focal uterine mass is seen. No free fluid is noted. The right ovary is measured at 3.6 x 3.0 x 2.8 cm. There are three follicles greater than a centimeter in diameter measured as follows: 1.8 x 1.8, 1.7 x 1.2, and 1.2 x 1.0 cm. In addition, the right ovary contains nine follicles ranging in size of 0.9 to 1.0 cm. The overall dimensions of the left ovary today are 4.7 x 3.7 x 3.3 cm. There are three follicles over a centimeter in size in the left ovary measured as follows: 1.9 x 1.7, 1.2 x 0.7, and 2.2 x 1.7 cm. In addition, the left ovary contains 16 follicles identified ranging in size from 0.4 to 0.8 cm. IMPRESSION: Ovarian follicle study. Signed by Sean Wilkes MD 09/25/2016 01:51 P
== END ==
LOC: M RAD 09:39 → M LAB 09:39
PROVIDERS: ATTEND Obstetrics & Gynecology Reproductive Endocrinology
DX: N97.8 Female infertility of other origin (principal)

== ENCOUNTER → 2016-10-05 | Outpatient (CLI) | payer OTHER ==
[2016-10-05 10:46] LABS: PROGESTERONE 13.6 NG/ML
[2016-10-05 10:47] LABS: ESTRADIOL 90.5 PG/ML
== END ==
LOC: M LAB 09:34
PROVIDERS: ATTEND Obstetrics & Gynecology Reproductive Endocrinology
DX: N97.9 Female infertility, unspecified (principal)

== ENCOUNTER → 2016-10-12 | Outpatient (CLI) | payer OTHER ==
[2016-10-12 09:32] LABS: HCG, SERUM QUANTITATIVE < 1.0 MIU/ML
[2016-10-12 10:09] LABS: PROGESTERONE 7.5 NG/ML
== END ==
LOC: M LAB 08:35
PROVIDERS: ATTEND Obstetrics & Gynecology Reproductive Endocrinology
DX: N97.9 Female infertility, unspecified (principal)

== ENCOUNTER → 2016-10-16 | Outpatient (CLI) | payer OTHER ==
[2016-10-16 08:40] LABS: HCG, SERUM QUANTITATIVE < 1.0 MIU/ML
--- NOTE | 2016-10-16 08:53 | REP ---
TRANSVAGINAL PELVIC ULTRASOUND FOLLICLE STUDY: Real-time sonographic evaluation of the pelvis performed utilizing transvaginal technique. The uterus measures 8.2 x 3.2 x 5.1 cm. Endometrial stripe measures 4 mm. Right ovary measures 2.4 x 1.3 x 2.1 cm. Eleven subcentimeter follicles are seen in the right ovary. Left ovary measures 3.0 x 1.5 x 1.8 cm. About six subcentimeter follicles are seen. There are no follicles in either ovary greater than 1 cm in diameter. Signed by Burke Ortega MD 10/16/2016 06:29 P
[2016-10-16 10:15] LABS: ESTRADIOL < 19.0 PG/ML; FOLLICLE STIMULATING HORMONE 3.4 mIU/mL; LUTEINIZING HORMONE 2.4 mIU/mL; PROGESTERONE 0.4 NG/ML
== END ==
LOC: M LAB 07:31 → M RAD 07:31
PROVIDERS: ATTEND Obstetrics & Gynecology Reproductive Endocrinology
DX: N97.9 Female infertility, unspecified (principal)

== ENCOUNTER → 2016-10-23 | Outpatient (CLI) | payer OTHER ==
--- NOTE | 2016-10-23 08:15 | REP ---
Clinical: Infertility. Technique: Transvaginal ultrasound examination. Findings: Anteverted uterus measures 7.6 x 2.6 x 4.1 cm. Endometrial complex measures 3 mm thickness. No discrete uterine or endometrial abnormalities are appreciated. No pelvic fluid or adnexal mass lesions identified. Right ovary measures 4.0 x 2.5 x 2.7 cm and includes three follicles between 10 and 13 mm diameter along with approximately 15 sub centimeter follicles. Left ovary measures 3.6 x 3.0 x 2.8 cm and includes five follicles between 10 and 14 mm diameter along with approximately five sub centimeter follicles. Impression: Bilateral follicles as noted above. Signed by Armando Smith MD 10/23/2016 08:06 A
[2016-10-23 10:38] LABS: ESTRADIOL 45.8 PG/ML; LUTEINIZING HORMONE 3.5 mIU/mL; PROGESTERONE 0.3 NG/ML
== END ==
LOC: M RAD 07:21
PROVIDERS: ATTEND Obstetrics & Gynecology Reproductive Endocrinology
DX: E28.2 Polycystic ovarian syndrome (principal)

== ENCOUNTER → 2016-10-26 | Outpatient (CLI) | payer OTHER ==
--- NOTE | 2016-10-26 08:25 | REP ---
Transvaginal pelvic sonography: History: E 28.2. Polycystic ovary. Infertility. Findings: Dimensions of the uterus are normal at 7.0 x 3.0 x 3.7 cm. Endometrial stripe 0.2 cm thick. No focal uterine mass is seen. No free fluid is noted. The overall dimensions of the right ovary are 2.7 x 2.2 x 2.7 cm. There are four follicles in the right ovary over a centimeter measured as follows: 1.0 x 0.9, 1.3 x 0.6, 1.1 x 0.9, and 1.0 x 0.9 cm. There are 13 follicles in the right ovary ranging in size from 0.3-0.9 cm in greatest diameter. The left ovary measures 3.7 x 2.1 x 2.0 cm. It contains five follicles over a centimeter, measured as follows: 1.2 x 1.0, 1.6 x 1.4, 1.0 x 0.8, 1.3 x 1.0, and 1.1 x 0.7 cm. There are five follicles in the left ovary ranging in size from 0.4-0.9 cm in greatest diameter. Impression: Follicle study pelvic sonography. Signed by Sean Wilkes MD 10/26/2016 03:19 P
[2016-10-26 10:51] LABS: PROGESTERONE 0.2 NG/ML
[2016-10-26 10:53] LABS: ESTRADIOL < 19.0 PG/ML
== END ==
LOC: M RAD 06:54 → M LAB 06:54
PROVIDERS: ATTEND Obstetrics & Gynecology Reproductive Endocrinology
DX: E28.2 Polycystic ovarian syndrome (principal)

== ENCOUNTER → 2016-10-28 | Outpatient (CLI) | payer OTHER ==
--- NOTE | 2016-10-28 08:49 | REP ---
TRANSVAGINAL PELVIC ULTRASOUND, FOLLICLE STUDY: Real-time sonographic evaluation of the pelvis performed utilizing transvaginal technique. The uterus measures 7.0 x 2.8 x 4.7 cm. Endometrial stripe measures 3 mm. There is no endometrial fluid collection. Right ovary measures 3.1 x 2.4 x 3.3 cm. Two dominant follicles are seen measuring 12 x 10 and 10 x 8 mm. Multiple other subcentimeter follicle are seen. Left ovary measures 3.8 x 3.0 x 2.3 cm. Five dominant follicle are seen which are greater than 1 cm in diameter. The largest measures 14 x 13 mm. Multiple other subcentimeter follicles are seen in the left ovary. Signed by Burke Ortega MD 10/28/2016 05:15 P
[2016-10-28 09:00] LABS: PROGESTERONE 0.3 NG/ML
[2016-10-28 09:01] LABS: ESTRADIOL 29.4 PG/ML; LUTEINIZING HORMONE 8.9 mIU/mL
== END ==
LOC: M RAD 07:00 → M LAB 07:00
PROVIDERS: ATTEND Obstetrics & Gynecology Reproductive Endocrinology
DX: E28.2 Polycystic ovarian syndrome (principal)

== ENCOUNTER → 2016-10-30 | Outpatient (CLI) | payer OTHER ==
[2016-10-30 09:19] LABS: ESTRADIOL 55.9 PG/ML; LUTEINIZING HORMONE 1.7 mIU/mL; PROGESTERONE 0.6 NG/ML
--- NOTE | 2016-10-30 10:40 | REP ---
TRANSVAGINAL PELVIC ULTRASOUND, FOLLICLE STUDY: Transvaginal pelvic ultrasound is performed. The uterus measures 7.5 x 2.5 x 4.6 cm. The endometrial thickness is 3 mm with no endometrial fluid collection. The right ovary measures 4.2 x 2.6 x 4.2 cm. There are six dominant follicles greater than 1 cm in diameter, the largest measuring 12 x 10 mm. Multiple other subcentimeter follicles are seen in the right ovary. The left ovary measures 3.6 x 3.3 x 2.8 cm. Six dominant follicles are seen greater than 1 cm in diameter, the largest 14 x 13 mm. Multiple other subcentimeter follicles are seen. Signed by Burke Ortega MD 10/30/2016 08:30 P
== END ==
LOC: M LAB 07:34 → M RAD 07:34
PROVIDERS: ATTEND Obstetrics & Gynecology Reproductive Endocrinology
DX: E28.2 Polycystic ovarian syndrome (principal)

== ENCOUNTER → 2016-11-02 | Outpatient (CLI) | payer OTHER ==
--- NOTE | 2016-11-02 09:46 | REP ---
TRANSVAGINAL PELVIC ULTRASOUND, FOLLICLE STUDY: Real-time sonographic evaluation of the pelvis performed utilizing transvaginal technique. The uterus measures 8.5 x 3.2 x 4.4 cm. Endometrial stripe measures 6 mm with no endometrial fluid collection. The right ovary measures 2.8 x 2.6 x 3.1 cm. There are nine follicles greater than 1 cm in diameter in the right ovary, the largest measuring 16 x 15 mm. Multiple other subcentimeter follicles are seen in the right ovary. The left ovary measures 3.4 x 2.6 x 3.6 cm. There are six dominant follicles greater than 1 cm in diameter, the largest is 17 x 16 mm. Several other subcentimeter follicles are seen in the left ovary. Signed by Burke Ortega MD 11/02/2016 04:13 P
[2016-11-02 16:19] LABS: ESTRADIOL 361.3 PG/ML; LUTEINIZING HORMONE 1.6 mIU/mL; PROGESTERONE < 0.2 NG/ML
== END ==
LOC: M LAB 08:27 → M RAD 08:27
PROVIDERS: ATTEND Obstetrics & Gynecology Reproductive Endocrinology
DX: E28.2 Polycystic ovarian syndrome (principal)

== ENCOUNTER → 2016-11-18 | Outpatient (CLI) | payer OTHER ==
[2016-11-18 10:46] LABS: PROGESTERONE 12.2 NG/ML
== END ==
LOC: M LAB 08:36
PROVIDERS: ATTEND Obstetrics & Gynecology Reproductive Endocrinology
DX: Z32.00 Encounter for pregnancy test, result unknown (principal)

== ENCOUNTER → 2016-11-20 | Outpatient (CLI) | payer OTHER ==
[2016-11-20 09:04] LABS: ESTRADIOL 165.3 PG/ML
== END ==
LOC: M LAB 08:08
PROVIDERS: ATTEND Obstetrics & Gynecology Reproductive Endocrinology
DX: Z32.01 Encounter for pregnancy test, result positive (principal)